=== PATIENT | male | born 1960 | race Hispanic/Latino ===

== ENCOUNTER 2020-04-10 06:38 | Day surgery (SDC) | payer OTHER ==
[2020-04-07 11:04] LABS: CREATININE 1.4 mg/dL (0.5-1.5); POTASSIUM 4.6 mmol/L (3.5-5.1)
[2020-04-07 11:26] LABS: BASOPHILS % (AUTO) 1.1 % (0.0-5.0); EOSINOPHILS % (AUTO) 5.5 % (0.0-8.0); HEMATOCRIT 45.3 % (42-54); LYMPHOCYTES % (AUTO) 19.7 % (21.0-51.0); MEAN CORPUSCULAR HEMOGLOBIN 31.2 pg (27.0-33.0); MEAN CORPUSCULAR HGB CONC 33.3 g/dL (32.0-36.0); MEAN CORPUSCULAR VOLUME 93.6 fL (79-99); MONOCYTES % (AUTO) 7.8 % (3.0-13.0); NEUTROPHILS % (AUTO) 65.6 % (40.0-77.0); PLATELET COUNT (AUTO) 245 K/uL (130-400); RED BLOOD CELL COUNT(AUTO) 4.84 MIL/uL (4.50-6.20); RED CELL DISTRIBUTION WIDTH 11.6 % (11.0-15.5); WHITE BLOOD COUNT (AUTO) 10.9 K/uL (4.8-10.8)
[2020-04-09 13:52] VITALS: BP 146/84
[~2020-04-10] VITALS: Ht 171.4 cm; Wt 86.0 kg
[2020-04-10] VITALS (16 sets, daily range): BP systolic 105–131; BP diastolic 59–69
[~2020-04-10 06:38] MED LIST: ASPI-1026 PO; ATOR20TA65 PO; DOCU100T PO; ENAL10TA18 PO; METO50TA18 PO; OXYB5TAB15 PO; SENN-297 PO; SITA100T12 PO; TAMS-1 PO
[2020-04-10] MEDS ORDERED: CEFTRIAXONE SODIUM 1 GM ONE (06:44)
[2020-04-10] MEDS ORDERED: LACTATED RINGERS 1000ML 1,000 ML IV ONE (06:44)
[2020-04-10] MEDS ORDERED: SODIUM CHLORIDE 0.9% 1000ML 1,000 ML IV ONE (06:46)
[2020-04-10] MEDS ORDERED: SUCCINYLCHOLINE CHLORIDE 20 MG/ML 10 ML VIAL ONE (07:57)
[2020-04-10] MEDS ORDERED: PROPOFOL 10 MG/ML 20ML VIAL IV ONE (07:57)
[2020-04-10] MEDS ORDERED: LIDOCAINE PF 2% 5ML ABBOJECT ONE (07:57)
[2020-04-10] MEDS ORDERED: FENTANYL CITRATE PF 50 MCG/1 ML 2ML VIAL ONE (07:57)
[2020-04-10] MEDS ORDERED: CEFTRIAXONE SODIUM 1 GM IVP ONE (08:00)
[2020-04-10] MEDS ORDERED: GLYCOPYRROLATE 1 MG/5 ML SYRINGE ONE (08:40)
[2020-04-10] MEDS ORDERED: EPHEDRINE SULFATE 50 MG/ML AMPULE ONE (08:43)
--- NOTE | 2020-04-10 10:49 | NUR ---
Discharge Received in Day Pt pod. Report given from Viral RN. A&O. Denies pain and nausea. side rails X2. VS stable. FBS 176mgdl. Security contacted to bring belongings. All D/C instructions given to pt. Verbalized understanding.
--- NOTE | 2020-04-10 11:04 | NUR ---
Discharge Tolerated PO intake. A&O. VS stable. Family contacted pickling grader pt at emergency entrance. Verbalized understanding.
[2020-04-10] MEDS ORDERED: ACET1TAB25 PO (11:22)
--- NOTE | 2020-04-10 12:10 | NUR ---
Discharge Belonging return to pt. IV D/C no redness/swelling noted. Catheter intact. Denies pain. Transported to private car with family present. All D/C instructions and Rx given. Verbalized understanding.
[2020-04-13] MEDS ORDERED: CEFTRIAXONE SODIUM 1 GM IVP ONE (08:30)
== END 2020-04-10 12:10 ==
LOC: DAH 06:38
PROVIDERS: ATTEND Urology
DX: Z46.6 Encounter for fitting and adjustment of urinary device (principal); Z20.828 Contact with and (suspected) exposure to other viral communicable diseases; N20.0 Calculus of kidney; I10 Essential (primary) hypertension; I25.10 Atherosclerotic heart disease of native coronary artery without angina pectoris; E11.9 Type 2 diabetes mellitus without complications; K21.9 Gastro-esophageal reflux disease without esophagitis; N17.9 Acute kidney failure, unspecified; Z95.1 Presence of aortocoronary bypass graft; Z98.890 Other specified postprocedural states; Z79.899 Other long term (current) drug therapy
CPT/HCPCS: 36415; 50590; 52310; 80048; 82948 ×3; 85025; 93005; A4215; A4221; A4222; A4223; A4600; A4663; C9803; J0330; J0696; J2001; J2704; J3010; J3490 ×2; J7030; J7120; U0003